=== PATIENT | male | born 1990 ===

== ENCOUNTER 2021-11-08 14:54 | Emergency (ER) | payer SELFPAY ==
[2021-11-08 17:13] LABS: Basophils % (Auto) 0.4 % (0.0-1.8); Eosinophils % (Auto) 0.3 % (0.0-4.3); Hematocrit 48.4 % (35.5-45.6); Hemoglobin 15.2 gm/dl (11.8-15.2); Lymphocytes # (Auto) 1.6 K/mm3 (1.2-5.4); Lymphocytes % (Auto) 18.7 % (13.4-35.0); Mean Corpuscular HGB Conc 31 % (32-34); Mean Corpuscular Volume 77 fl (84-94); Monocytes # (Auto) 0.4 K/mm3 (0.0-0.8); Monocytes % (Auto) 5.1 % (0.0-7.3); Platelet Count 190 K/mm3 (140-440); Red Blood Count 6.28 M/mm3 (3.65-5.03); Red Cell Distribution Width 14.7 % (13.2-15.2)
[2021-11-08 17:24] LABS: BUN/Creatinine Ratio 18; Blood Urea Nitrogen 16 mg/dL (9-20); Calcium 10.4 mg/dL (8.4-10.2); Hemolysis Index 10
--- NOTE | 2021-11-08 18:22 | Emergency Department Report ---
ED Psych HPI - General Chief Complaint: Psych Stated Complaint: SUICIDAL IDEATION Time Seen by Provider: 11/08/21 16:13 Source: patient, EMS Mode of arrival: Ambulatory - History of Present Illness Initial Comments: Chief complaint: "I am feeling suicidal." HPI: This is a 30-year-old male with history of anxiety, depression, previous suicide attempt who presents with suicidal ideation. He plans to run into traffic. He does not take any psychotropic medication at this time. He lives with his father. No new social stressors according to his report. MD Complaint: suicidal ideation, feels depressed -: Gradual, days(s) (Several days of depression) Associated Psychiatric Symptoms: depression, suicidal ideation History of same: Yes Quality: constant Improves With: none Worsens With: none Context: not taking psychiatric Associated Symptoms: denies other symptoms If Self Harm: has plan - Related Data Previous Rx's Medication Instructions Recorded Last Taken Type Sertraline [Zoloft] 25 mg PO QDAY #30 tab 11/10/21 Unknown Rx Allergies Allergy/AdvReac Type Severity Reaction Status Date / Time Penicillins Allergy Severe Anaphylaxis Verified 11/09/21 18:18 ED Review of Systems ROS: Stated complaint: SUICIDAL IDEATION Other details as noted in HPI Comment: All other systems reviewed and negative Constitutional: denies: chills, fever, malaise Respiratory: denies: cough, shortness of breath Cardiovascular: denies: chest pain Gastrointestinal: denies: abdominal pain, nausea Psychiatric: depression, suicidal thoughts. denies: auditory hallucinations, visual hallucinations, homicidal thoughts ED Past Medical Hx - Past Medical History Previous Medical History?: Yes Hx Psychiatric Treatment: Yes (Anxiety, depression, previous suicide attempt) - Surgical History Past Surgical History?: Yes Additional Surgical History: Surgery for testicular torsion - Social History Smoking Status: Never Smoker Substance Use Type: None - Medications Home Medications: Home Medications Medication Instructions Recorded Confirmed Last Taken Type Sertraline [Zoloft] 25 mg PO QDAY #30 tab 11/10/21 Unknown Rx ED Physical Exam - General Limitations: No Limitations General appearance: alert, in no apparent distress - Head Head exam: Present: atraumatic, normocephalic - Eye Eye exam: Present: normal appearance - ENT ENT exam: Present: mucous membranes moist - Neck Neck exam: Present: normal inspection, full ROM - Respiratory Respiratory exam: Present: normal lung sounds bilaterally. Absent: respiratory distress, wheezes, rales, rhonchi - Cardiovascular Cardiovascular Exam: Present: regular rate, normal rhythm, normal heart sounds. Absent: systolic murmur, diastolic murmur, rubs, gallop - GI/Abdominal GI/Abdominal exam: Present: soft, normal bowel sounds. Absent: distended, tenderness, guarding, rebound - Rectal Rectal exam: Present: deferred - Extremities Exam Extremities exam: Present: normal inspection - Back Exam Back exam: Present: normal inspection - Neurological Exam Neurological exam: Present: alert, oriented X3 - Psychiatric Psychiatric exam: Present: depressed, flat affect - Skin Skin exam: Present: warm, dry, intact, normal color. Absent: rash ED Course Vital Signs 11/08/21 11/09/21 11/09/21 22:52 10:42 12:42 Temperature 98.3 F 98.4 F Pulse Rate 90 75 Respiratory 18 18 Rate Blood Pressure 114/79 117/75 [Left] O2 Sat by Pulse 95 98 95 Oximetry 11/09/21 11/10/21 11/10/21 21:42 02:08 04:17 Temperature 98.4 F 98.2 F Pulse Rate 56 L 68 Respiratory 16 16 16 Rate Blood Pressure 116/69 91/57 [Left] O2 Sat by Pulse 97 97 96 Oximetry 11/10/21 10:30 Temperature 98.4 F Pulse Rate 67 Respiratory 16 Rate Blood Pressure 109/65 [Left] O2 Sat by Pulse 96 Oximetry ED Medical Decision Making - Lab Data Result diagrams: 11/08/21 16:54 11/08/21 16:54 - Medical Decision Making Mr. Caballero is a 30-year-old male with history of anxiety, depression, previous suicide attempt who presents with suicidal ideation plan to run into traffic. He is medically clear for psychiatric care. I have reviewed labs including CBC chemistry serum toxicology screen. 1013 form completed. ED hold in place. Awaiting treatment recommendations by psychiatry team. Critical care attestation.: If time is entered above; I have spent that time in minutes in the direct care of this critically ill patient, excluding procedure time. ED Disposition Clinical Impression: Acute depression, Suicidal ideation Disposition: HOME / SELF CARE / HOMELESS Is pt being admited?: No Does the pt Need Aspirin: No Condition: Stable Instructions: Suicidal Feelings: How to Help Yourself Additional Instructions: Drink plenty water. Take medications as prescribed by behavioral health. Return for problems. Follow-up as directed by behavioral health and with your family doctor or the referral physician. Prescriptions: Sertraline [Zoloft] 25 mg PO QDAY #30 tab Referrals: GRZEGORZ ALEJANDRE MD [Staff Physician] - 3-5 Days PRIMARY CARE, [Primary Care Provider] - 3-5 Days
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
[2021-11-09] MEDS ORDERED: HALOPERIDOL LACTATE 5 MG/1 ML INJ IM PRN (12:39)
[2021-11-09] MEDS ORDERED: LORazepam 2 MG/ML VIAL IM PRN (12:39)
[2021-11-09] MEDS ORDERED: ONDANSETRON 4 MG ODT TAB PO PRN (12:39)
[2021-11-09] MEDS ORDERED: ACETAMINOPHEN 325 MG TAB PO PRN (12:39)
--- NOTE | 2021-11-09 12:40 | Event Note ---
Date: 11/09/21 The patient was evaluated in the emergency department for symptoms described in the history of present illness. He/she was evaluated in the context of the global COVID-19 pandemic, which necessitated consideration that the patient might be at risk for infection with the virus that causes COVID-19. Institutional protocols and algorithms that pertain to the evaluation of patients at risk for COVID-19 are in a state of rapid change based on information released by regulatory bodies including the CDC and federal and state organizations. These policies and algorithms were followed during the patient's care in the emergency department. Please note that these policies, procedures and recommendations changed on a rapid basis. Laboratory studies, vital signs, nursing documentation, ER documentation, and psychiatric documentation are reviewed and appreciated. Nursing team reports no acute events this morning or concerns. Urinalysis and urine drug screen pending. The emergency room will follow along as these results. Urine drug screen not necessary for emergency medical decision-making. Patient young and healthy, and did not endorse any urinary symptoms to initial ER provider. The patient is awake and ambulating and does not appear to be in any acute distress. The patient was deemed medically suitable for psychiatric disposition and placement during his initial ER evaluation. The patient continues to remain medically suitable for psychiatric placement and disposition. He is currently pending psychiatric placement. Nursing team informs me that urine screens have been sent. We will follow these up. Vital Signs 11/08/21 11/09/21 22:52 10:42 Temperature 98.3 F Pulse Rate 90 Respiratory 18 Rate Blood Pressure 114/79 [Left] O2 Sat by Pulse 95 98 Oximetry Lab Results 11/08/21 11/08/21 11/08/21 Range/Units 16:54 16:54 16:54 WBC 8.3 (4.5-11.0) K/mm3 RBC 6.28 H (3.65-5.03) M/mm3 Hgb 15.2 (11.8-15.2) gm/dl Hct 48.4 H (35.5-45.6) % MCV 77 L (84-94) fl MCH 24 L (28-32) pg MCHC 31 L (32-34) % RDW 14.7 (13.2-15.2) % Plt Count 190 (140-440) K/mm3 Lymph % (Auto) 18.7 (13.4-35.0) % [place] % (Auto) 5.1 (0.0-7.3) % Eos % (Auto) 0.3 (0.0-4.3) % Baso % (Auto) 0.4 (0.0-1.8) % Lymph # (Auto) 1.6 (1.2-5.4) K/mm3 [place] # (Auto) 0.4 (0.0-0.8) K/mm3 Eos # (Auto) 0.0 (0.0-0.4) K/mm3 Baso # (Auto) 0.0 (0.0-0.1) K/mm3 Seg Neutrophils % 75.5 H (40.0-70.0) % Seg Neutrophils # 6.3 (1.8-7.7) K/mm3 Sodium 145 (137-145) mmol/L Potassium 5.0 (3.6-5.0) mmol/L Chloride 105.8 (98-107) mmol/L Carbon Dioxide 26 (22-30) mmol/L Anion Gap 18 mmol/L BUN 16 (9-20) mg/dL Creatinine 0.9 (0.8-1.3) mg/dL Estimated GFR > 60 ml/min BUN/Creatinine Ratio 18 % Glucose 119 H (75-100) mg/dL Calcium 10.4 H (8.4-10.2) mg/dL Salicylates 0.3 L (2.8-20.0) mg/dL Acetaminophen (10.0-30.0) ug/mL Plasma/Serum Alcohol (0-0.07) % SARS-CoV-2 (PCR) (Negative) 11/08/21 11/08/21 11/09/21 Range/Units 16:54 16:54 09:25 WBC (4.5-11.0) K/mm3 RBC (3.65-5.03) M/mm3 Hgb (11.8-15.2) gm/dl Hct (35.5-45.6) % MCV (84-94) fl MCH (28-32) pg MCHC (32-34) % RDW (13.2-15.2) % Plt Count (140-440) K/mm3 Lymph % (Auto) (13.4-35.0) % [place] % (Auto) (0.0-7.3) % Eos % (Auto) (0.0-4.3) % Baso % (Auto) (0.0-1.8) % Lymph # (Auto) (1.2-5.4) K/mm3 [place] # (Auto) (0.0-0.8) K/mm3 Eos # (Auto) (0.0-0.4) K/mm3 Baso # (Auto) (0.0-0.1) K/mm3 Seg Neutrophils % (40.0-70.0) % Seg Neutrophils # (1.8-7.7) K/mm3 Sodium (137-145) mmol/L Potassium (3.6-5.0) mmol/L Chloride (98-107) mmol/L Carbon Dioxide (22-30) mmol/L Anion Gap mmol/L BUN (9-20) mg/dL Creatinine (0.8-1.3) mg/dL Estimated GFR ml/min BUN/Creatinine Ratio % Glucose (75-100) mg/dL Calcium (8.4-10.2) mg/dL Salicylates (2.8-20.0) mg/dL Acetaminophen 5.0 L (10.0-30.0) ug/mL Plasma/Serum Alcohol 0.01 (0-0.07) % SARS-CoV-2 (PCR) Negative (Negative)
[2021-11-09 12:58] LABS: Bilirubin,Urine NEG (Negative); Blood,Urine SM (Negative); Color,Urine Yellow (Yellow); Protein,Urine <15 mg/dL mg/dL (Negative); RBC,Urine < 1.0 /HPF (0.0-6.0); Urobilinogen,Urine < 2.0 mg/dL (<2.0); WBC,Urine < 1.0 /HPF (0.0-6.0)
[2021-11-09 13:08] LABS: Amphetamine Screen,Urine Negative; Benzodiazepines Screen,Urine Negative; Cocaine Screen,Urine Negative; Methadone Screen,Urine Negative; Opiate Screen,Urine Negative
[2021-11-09 13:38] LABS: Cannabinoid Screen,Urine Positive
--- NOTE | 2021-11-10 09:59 | Progress Note ---
Subjective - Reason for Consult Consult date: 11/10/21 Reason for consult: SI - Chief Complaint Chief complaint: The patient was seen today. He says he feels much better, and states he slept well. He says "I think getting a good night's sleep is what did it." The patient says he's no longer suicidal. He denies hallucinations of any kind. REVIEW OF SYSTEMS Constitutional: Negative for weight loss ENT: Negative for stridor Respiratory: Negative for cough or hemoptysis All other systems reviewed and are negative MENTAL STATUS EXAMINATION General Appearance and Behavior: Age appropriate, good hygiene, wearing appropriate clothes. calm, cooperative Cooperation: Cooperative Psychomotor Behavior: Psychomotor normal Mood: much better Affect and affective range: congruent with stated mood Thought Process: Goal directed Thought Content: None Speech: normal tone and pace Suicidal Ideation: Denies Homicidal Ideation: Denies Hallucinations: Denies Delusions: Denies Impulse Control: Limited Insight and Judgment: Limited insight and fair judgment Memory: Limited Attention: distracted Orientation: a/o x 3 Assessment (1) Major Depressive Disorder Current Visit: Yes Status: Acute Treatment Plan d/c 1013 Zoloft 25mg po daily Medical: per primary Disposition: Do not recommend acute psychiatric inpatient treatment. The patient understands that if SI/HI or any fear of endangerment arise he is to seek immediate assistance. The patient to follow up with outpatient psych in 7 to 14 days upon discharge The radiology specialist to further discuss safety plan Will sign off. Thanks Case staffed with Dr. Connell. Mental Status Exam - Vital signs Last Vital Signs Temp 98.2 F 11/10/21 04:17 Pulse 68 11/10/21 04:17 Resp 16 11/10/21 04:17 BP 91/57 11/10/21 04:17 Pulse Ox 96 11/10/21 04:17
--- NOTE | 2021-11-10 10:11 | Emergency Department Report ---
Blank Doc - Documentation Documentation: Patient has been medically cleared. Patient was here with anxiety. Psychiatric services seen the patient this morning. He has been cleared from their perspective and ready for discharge. He is not actively suicidal or homicidal. There is no evidence of acute delusion or psychosis. Patient was referred for outpatient follow-up.
[2021-11-10 10:31] VITALS: BP 109/65
== END 2021-11-10 11:34 | disposition home or self-care (01) ==
LOC: ED 14:54
DX: F32.A Depression, unspecified (principal); R45.851 Suicidal ideations; Z20.822 Contact with and (suspected) exposure to COVID-19
CPT/HCPCS: 36415; 80048; 80307; 81001; 85025; 99284; U0003; 80320; G0480

== ENCOUNTER 2022-03-19 06:22 | Emergency (ER) | payer SELFPAY | END 2022-03-19 07:00 | disposition left against medical advice (07) | LOC: ED 06:22 | DX: K92.0 Hematemesis (principal); Z53.21 Procedure and treatment not carried out due to patient leaving prior to being seen by health care provider ==